=== PATIENT | female | born 1960 | race Two or more races ===

== ENCOUNTER 2017-10-14 16:47 | Emergency (ER) | payer BC ==
[2017-10-14 16:52] VITALS: BP 143/95; PULSE 98; TEMP 98; BMI 32.9
--- NOTE | 2017-10-14 17:26 | PDOC ---
History of Present Illness - General Chief Complaint: Sore Throat Stated Complaint: PAIN Time Seen by Provider: 10/14/17 17:02 History Source: Patient Exam Limitations: No Limitations - History of Present Illness Initial Comments: 10/14/17 17:30 57 year old female with medical history of HTN, CHOL, hypothyroid, asthma and surgical history of ectopic and bunionectomies,presents with sorethroat x 1 week with slight headache. Reports painful swallowing, with no fever or chills. States took different otc medication with no real relief. 10/14/17 17:31 10/14/17 17:32 Timing/Duration: reports: week Severity: reports: mild Possible Cause: Yes: no prior episodes Associated Symptoms: reports: headache, sore throat Aspirin Received prior to arrival: Yes: no aspirin today Beta Shaq Contraindications(Core Measure): Yes: Not Prescribed Beta Shaq Given by EMS(Core Measure): No Beta Shaq Taken at Home(Core Measure): No Beta Shaq Not Indicated at this Time(Core Measure): No Past History - Past Medical History Allergies/Adverse Reactions: Allergies Allergy/AdvReac Type Severity Reaction Status Date / Time naproxen [From Naprosyn] Allergy Rash Verified 10/14/17 16:52 Home Medications: Ambulatory Orders Aspirin [ASA -] 81 mg PO DAILY 10/14/17 Atorvastatin Ca [Lipitor] 10 mg PO HS 10/14/17 Levothyroxine [Synthroid -] 25 mcg PO DAILY 10/14/17 RX: Amlodipine Besylate 5 mg PO ASDIR 10/14/17 RX: Irbesartan 150 mg PO ASDIR 10/14/17 COPD: No HTN: Yes Hypercholesterolemia: Yes Thyroid Disease: Yes - Suicide/Smoking/Psychosocial Hx Smoking History: Never smoked Hx Alcohol Use: No Drug/Substance Use Hx: No Substance Use Type: None Respiratory Specific PMHX - Complaint Specific PMHX Angina: No Bronchitis: No Pneumonia: No Pulmonary Embolus: No TB (Tuberculosis): No Review of Systems - Review of Systems Able to Perform ROS?: Yes Is the patient limited Pakistani proficient: No Constitutional: No: Chills, Diaphoresis, Fever, Night Sweats, Other HEENTM: Yes: Throat Pain, Difficulty Swallowing. No: Double Vision, Ear Discharge, Nose Pain, Nose Bleeding, Hearing Loss Respiratory: No: Orthopnea, Shortness of Breath, SOB at Rest, Wheezing, Productive cough Cardiac (ROS): No: Chest Pain, Lightheadedness ABD/GI: No: Blood Streaked Bowels, Nausea, Vomiting, Indigestion : No: Burning, Testicular Swelling Neurological: Yes: Headache. No: Numbness Psychiatric: No: Stressors Endocrine: No: Excessive Sweating Hematologic/Lymphatic: No: Anemia *Physical Exam - Vital Signs Last Vital Signs Temp Pulse Resp BP Pulse Ox 98.0 F 98 H 20 143/95 97 10/14/17 16:49 10/14/17 16:49 10/14/17 16:49 10/14/17 16:49 10/14/17 16:49 - Physical Exam General Appearance: Yes: Nourished, Appropriately Dressed. No: Apparent Distress HEENT: positive: EOMI, SHAYE, TMs Normal, Pharyngeal Erythema. negative: Tonsillar Exudate, Tonsillar Erythema Neck: positive: Supple. negative: Lymphadenopathy (R), Lymphadenopathy (L) Respiratory/Chest: positive: Lungs Clear, Normal Breath Sounds Cardiovascular: positive: Regular Rate, S1, S2 Neurologic: positive: Fully Oriented, Alert Medical Decision Making - Medical Decision Making 10/14/17 17:34 57 year old female with history of hypertension, cholesterol, thyroid disease and asthma presents with sorethroat x 1 week rapid strep 10/14/17 18:00 rapid strep negative follow up with primary physician *DC/Admit/Observation/Transfer Diagnosis at time of Disposition: Pharyngitis Qualifiers: Pharyngitis/tonsillitis etiology: unspecified etiology Qualified Code(s): J02.9 - Acute pharyngitis, unspecified - Discharge Dispostion Disposition: HOME Condition at time of disposition: Good Admit: No - Referrals Referrals: Vero Chinchilla [Primary Care Provider] - 3 days - Patient Instructions Printed Discharge Instructions: DI for Viral Pharyngitis, Allergies, Respiratory (Alternative Therapy) Additional Instructions: *Drink plenty fluids *Continue taking zyrtec as prescribed, alina take acetaminophen and ibuprofen for fever *Call primary physician for follow up appointment - Post Discharge Activity Forms/Work/School Notes: Back to Work
== END 2017-10-14 18:05 | disposition home or self-care (01) ==
LOC: JERFT 16:47
DX: J02.9 Acute pharyngitis, unspecified (principal); I10 Essential (primary) hypertension; E78.00 Pure hypercholesterolemia, unspecified; E07.9 Disorder of thyroid, unspecified; J45.909 Unspecified asthma, uncomplicated
CPT/HCPCS: 87070; 87430; 99281-25

== ENCOUNTER 2017-11-08 04:15 | Emergency (ER) | payer BC ==
[2017-11-08 05:06] VITALS: BMI 31.9
--- NOTE | 2017-11-08 05:20 | PDOC ---
History of Present Illness - General Chief Complaint: Lightheaded Stated Complaint: DIZZY/HIGH BP Time Seen by Provider: 11/08/17 05:20 - History of Present Illness Initial Comments: 11/08/17 05:49 57 year old female with 4 days of bodyaches, low grade fever, generalized weakness tachycardia and cough. denies chest pain, sob, NVD, abdominal pain. patient has a an abscess dime sized to upper back x 3 days. Past History - Past Medical History Allergies/Adverse Reactions: Allergies Allergy/AdvReac Type Severity Reaction Status Date / Time naproxen [From Naprosyn] Allergy Rash Verified 11/08/17 04:36 Home Medications: Ambulatory Orders Amlodipine Besylate 5 mg PO ASDIR 10/14/17 Aspirin [ASA -] 81 mg PO DAILY 10/14/17 Atorvastatin Ca [Lipitor] 10 mg PO HS 10/14/17 Irbesartan 150 mg PO ASDIR 10/14/17 Levothyroxine [Synthroid -] 25 mcg PO DAILY 10/14/17 COPD: No HTN: Yes Hypercholesterolemia: Yes Thyroid Disease: Yes - Suicide/Smoking/Psychosocial Hx Smoking History: Never smoked Have you smoked in the past 12 months: No Information on smoking cessation initiated: No Hx Alcohol Use: No Drug/Substance Use Hx: No Substance Use Type: None Cardiac Specific PMH - Complaint Specific PMHX Angina: No Pulmonary Embolus: No Review of Systems - Review of Systems Able to Perform ROS?: Yes Is the patient limited Panamanian proficient: No Constitutional: Yes: Fever Respiratory: Yes: Cough Cardiac (ROS): Yes: Lightheadedness, Palpitations ABD/GI: No: Symptoms Reported, See HPI, Abdominal Distended, Abd. Pain w/ defecation, Blood Streaked Bowels, Constipated, Diarrhea, Difficulty Swallowing , Nausea, Poor Appetite, Poor Fluid Intake, Rectal Bleeding, Vomiting, Indigestion, Abdominal cramping, Tarry Stools, Other Integumentary: Yes: Other (abscess) Neurological: No: Symptoms reported, See HPI, Headache, Numbness, Paresthesia, Pre-Existing Deficit, Seizure, Tingling, Tremors, Weakness, Unsteady Gait, Ataxia, Dizziness, Other *Physical Exam - Vital Signs Last Vital Signs Temp Pulse Resp BP Pulse Ox 100.2 F H 122 H 18 122/65 95 11/08/17 04:36 11/08/17 04:36 11/08/17 04:36 11/08/17 04:36 11/08/17 04:36 - Physical Exam HEENT: positive: Pharyngeal Erythema, Nasal Congestion Respiratory/Chest: positive: Decreased Breath Sounds, Rhonchi Cardiovascular: positive: Tachycardia Gastrointestinal/Abdominal: positive: Normal Bowel Sounds, Soft Extremity: positive: Normal Capillary Refill, Normal Inspection, Normal Range of Motion Integumentary: positive: Normal Color, Dry, Warm Neurologic: positive: Fully Oriented, Alert, Normal Mood/Affect Heart Score/ECG Review - ECG Intrepretation Rhythm: Regular Rhythm Comment:: 11/08/17 06:53 107 Procedures - Incision and Drainage I&D Site: Left: Other (left upper back dimes sized abscess with minimal surrounding erythema. no streaking) Betadine cleansed: Yes Anesthesia: 1% Lidocaine Blade Size: 11 Attempts: 1 Plain Packing: No Complications: none Dressing: Yes (~ 1 ml pus drainage/ serosanguinous drainage) ED Treatment Course - LABORATORY CBC & Chemistry Diagram: 11/08/17 06:17 11/08/17 06:17 - ADDITIONAL ORDERS Additional order review: 11/08/17 06:17 RBC 4.74 MCV 87.6 MCHC 32.4 RDW 14.8 MPV 8.3 Neutrophils % 79.1 Lymphocytes % 14.3 Monocytes % 5.5 Eosinophils % 0.4 Basophils % 0.7 - RADIOLOGY Radiology Studies Ordered: Category Date Time Status CHEST PA & LAT [RAD] Stat Radiology 11/08/17 05:37 Taken - Medications Given in the ED: ED Medications Discontinued Medications Generic Name Dose Route Start Last Admin Trade Name Dave PRN Reason Stop Dose Admin Acetaminophen 650 mg 11/08/17 05:38 11/08/17 06:24 Tylenol - PO 11/08/17 05:39 650 mg ONCE ONE Administration Albuterol/Ipratropium 1 amp 11/08/17 05:37 11/08/17 06:24 Duoneb - NEB 11/08/17 05:38 1 amp ONCE ONE Administration Sodium Chloride 500 mls @ 500 mls/hr 11/08/17 05:37 11/08/17 06:37 Normal Saline - IV 11/08/17 06:36 500 mls/hr ASDIR STA Administration Progress Note - Progress Note Progress Note: A: flu like symptoms vs. pneumonia vs bronchitis Skin ABscess. P: CBC CMP Medical Decision Making - Medical Decision Making 11/08/17 07:03 patient pending IVF, reevaluation. Patient signed out to Kellee CRUZ. *DC/Admit/Observation/Transfer Diagnosis at time of Disposition: Abscess, Flu-like symptoms, Bronchitis - Referrals Referrals: Vero Chinchilla [Primary Care Provider] - - Patient Instructions - Post Discharge Activity
[2017-11-08] MEDS ORDERED: ALBUTEROL SO4 2.5/IPRATROPIUM 0.5 INH SOL 3 ML VIAL.NEB. NEB ONE ×2 (05:37→06:01)
[2017-11-08] MEDS ORDERED: SODIUM CHLORIDE 500 ML IV STA (05:37)
[2017-11-08] MEDS ORDERED: ACETAMINOPHEN 325 MG TABLET (FP) PO ONE (05:38)
--- NOTE | 2017-11-08 05:40 | PDOC ---
*Physical Exam - Vital Signs Last Vital Signs Temp Pulse Resp BP Pulse Ox 100.2 F H 122 H 18 122/65 95 11/08/17 04:36 11/08/17 04:36 11/08/17 04:36 11/08/17 04:36 11/08/17 04:36 ED Treatment Course - LABORATORY CBC & Chemistry Diagram: 11/08/17 06:17 11/08/17 06:17 Medical Decision Making - Medical Decision Making 11/08/17 05:40 agree with care from BERYL Barry *DC/Admit/Observation/Transfer Diagnosis at time of Disposition: Abscess, Flu-like symptoms, Bronchitis - Discharge Dispostion Disposition: HOME Condition at time of disposition: Improved - Referrals Referrals: Vero Chinchilla [Primary Care Provider] - - Patient Instructions Printed Discharge Instructions: DI for Viral Syndrome Additional Instructions: Your symptoms are most likely viral. Rest. Maintain adequate hydration and take Motrin or Tylenol for pain and/or fever. If symptoms worsen, return to ER - Post Discharge Activity
[2017-11-08] MEDS ORDERED: ACETAMINOPHEN 325 MG TABLET (FP) ONE (06:01)
[2017-11-08 06:34] LABS: BASO # 0.1 # (0.1-1); BASO % 0.7 % (0-2.0); EOS % 0.4 % (0-4.5); LYMPH # 1.3 (8-40); MCH 28.4 pg (25.7-33.7); MCHC 32.4 g/dl (32.0-36.0); MEAN CELL VOLUME 87.6 fl (80-96); MEAN PLT VOLUME 8.3 fl (7.5-11.1); MONO # 0.5 # (3.8-10.2); NEUT % 79.1 % (42.8-82.8); PLATELET COUNT 376 K/MM3 (134-434); RDW 14.8 % (11.6-15.6); WHITE BLOOD COUNT 8.9 K/mm3 (4.0-10.0)
[2017-11-08] MEDS ORDERED: ALBUTEROL SO4 0.083% IH SOL 2.5 MG/3 ML VIAL.NEB. NEB ONE ×2 (06:54→07:04)
[2017-11-08 07:04] LABS: ALBUMIN 3.8 g/dl (3.4-5.0); ALK PHOS 89 U/L (45-117); ANION GAP 8 (8-16); BILIRUBIN,TOTAL 0.4 mg/dL (0.2-1.0); CO2 26 mmol/L (21-32); GLUCOSE,RANDOM 131 mg/dL (74-106); SGOT/AST 14 U/L (15-37); SGPT/ALT 26 U/L (12-78); TOT PROT 7.6 g/dl (6.4-8.2)
[2017-11-08 07:06] LABS: CPK 104 IU/L (26-192); TROPONIN I < 0.02 ng/ml (0.00-0.05)
--- NOTE | 2017-11-08 07:34 | PDOC ---
*Physical Exam - Vital Signs Last Vital Signs Temp Pulse Resp BP Pulse Ox 100.2 F H 122 H 18 122/65 95 11/08/17 04:36 11/08/17 04:36 11/08/17 04:36 11/08/17 04:36 11/08/17 04:36 - Physical Exam General Appearance: Yes: Appropriately Dressed. No: Apparent Distress HEENT: positive: Normal Voice Neck: positive: Supple Respiratory/Chest: positive: Lungs Clear, Normal Breath Sounds. negative: Respiratory Distress Integumentary: positive: Dry, Warm Neurologic: positive: Fully Oriented, Alert, Normal Mood/Affect ED Treatment Course - LABORATORY CBC & Chemistry Diagram: 11/08/17 06:17 11/08/17 06:17 - ADDITIONAL ORDERS Additional order review: Laboratory Results 11/08/17 11/08/17 06:17 06:17 Sodium 139 Potassium 4.3 Chloride 105 Carbon Dioxide 26 Anion Gap 8 BUN 14 Creatinine 1.0 Creat Clearance w eGFR 56.95 Random Glucose 131 H Calcium 9.0 Total Bilirubin 0.4 AST 14 L ALT 26 Alkaline Phosphatase 89 Creatine Kinase 104 Troponin I < 0.02 Total Protein 7.6 Albumin 3.8 11/08/17 06:17 RBC 4.74 MCV 87.6 MCHC 32.4 RDW 14.8 MPV 8.3 Neutrophils % 79.1 Lymphocytes % 14.3 Monocytes % 5.5 Eosinophils % 0.4 Basophils % 0.7 - Medications Given in the ED: ED Medications Discontinued Medications Generic Name Dose Route Start Last Admin Trade Name Dave PRN Reason Stop Dose Admin Acetaminophen 650 mg 11/08/17 05:38 11/08/17 06:24 Tylenol - PO 11/08/17 05:39 650 mg ONCE ONE Administration Albuterol Sulfate 1 amp 11/08/17 06:54 11/08/17 07:07 Ventolin 0.083% Nebulizer Soln - NEB 11/08/17 06:55 1 amp ONCE ONE Administration Albuterol/Ipratropium 1 amp 11/08/17 05:37 11/08/17 06:24 Duoneb - NEB 11/08/17 05:38 1 amp ONCE ONE Administration Sodium Chloride 500 mls @ 500 mls/hr 11/08/17 05:37 11/08/17 06:37 Normal Saline - IV 11/08/17 06:36 500 mls/hr ASDIR STA Administration Medical Decision Making - Medical Decision Making 11/08/17 07:33 Patient signed out to me at 7 AM by BERYL Barry Patient's to 57-year-old female with no significant history here with viral syndrome. Had low-grade fever with tachycardia in ER with unremarkable labs and chest x-ray. Given Tylenol and IV fluid. Pending reassessment and flu swab. Anticipate discharge with supportive treatment 11/08/17 09:25 Influenza negative. Repeat T 99.3 w/ HR of 88. Pt reports feeling significantly better at this time. Will discharge with supportive treatment 11/08/17 09:25 *DC/Admit/Observation/Transfer Diagnosis at time of Disposition: Abscess, Flu-like symptoms, Bronchitis - Discharge Dispostion Disposition: HOME Condition at time of disposition: Improved - Referrals Referrals: Vero Chinchilla [Primary Care Provider] - - Patient Instructions Printed Discharge Instructions: DI for Viral Syndrome Additional Instructions: Your symptoms are most likely viral. Rest. Maintain adequate hydration and take Motrin or Tylenol for pain and/or fever. If symptoms worsen, return to ER - Post Discharge Activity
[2017-11-08 09:34] VITALS: BP 135/80; PULSE 88; TEMP 99
--- NOTE | 2017-11-08 13:28 | EKG ---
Test Reason : Blood Pressure : / mmHG Vent. Rate : 107 BPM Atrial Rate : 107 BPM P-R Int : 148 ms QRS Dur : 084 ms QT Int : 310 ms P-R-T Axes : 032 045 -02 degrees QTc Int : 413 ms SINUS TACHYCARDIA NONSPECIFIC T WAVE ABNORMALITY ABNORMAL ECG NO PREVIOUS ECGS AVAILABLE Confirmed by RADHA DUCKWORTH, AYLIN ([id number]) on 11/08/2017 1:27:40 PM Referred By: Confirmed By:AYLIN GARCIA MD
== END 2017-11-08 09:33 | disposition home or self-care (01) ==
LOC: JER 04:15
PROC: 0J970ZZ Drainage of Back Subcutaneous Tissue and Fascia, Open Approach (ICD-10-PCS; principal; 2017-11-08)
PROC: 3E0337Z Introduction of Electrolytic and Water Balance Substance into Peripheral Vein, Percutaneous Approach (ICD-10-PCS; 2017-11-08)
PROC: 3E0F7GC Introduction of Other Therapeutic Substance into Respiratory Tract, Via Natural or Artificial Opening (ICD-10-PCS; 2017-11-08)
PROC: 3E0F7GC Introduction of Other Therapeutic Substance into Respiratory Tract, Via Natural or Artificial Opening (ICD-10-PCS; 2017-11-08)
DX: J11.1 Influenza due to unidentified influenza virus with other respiratory manifestations (principal); L02.212 Cutaneous abscess of back [any part, except buttock and flank]
CPT/HCPCS: 36415; 71020-TC; 80053; 82550; 84484; 85025; 87070; 87077; 87205; 87804; 93005; 93010; 99282-25